=== PATIENT | female | born 1965 ===

== ENCOUNTER 2021-10-12 08:12 | Outpatient (CLI) | payer OTHER ==
[~2021-10-12 08:12] MED LIST: NORTUSS-EX LIQ118 ML PO; ZITHROMAX TRI-500 MG PO
== END 2021-10-12 08:18 | disposition home or self-care (01) ==
LOC: SONOGRAMA 08:12
PROVIDERS: ATTEND Pathology Anatomic Pathology & Clinical Pathology
DX: E04.2 Nontoxic multinodular goiter (principal)

== ENCOUNTER 2022-01-21 07:29 | Outpatient (CLI) | payer OTHER | END 2022-01-21 07:32 | disposition home or self-care (01) | LOC: SONOGRAMA 07:29 | PROVIDERS: ATTEND Pathology Anatomic Pathology & Clinical Pathology | DX: E04.2 Nontoxic multinodular goiter (principal) ==

== ENCOUNTER 2022-03-04 10:45 | Inpatient (IN) | payer OTHER ==
[~2022-03-04] VITALS: Ht 162.6 cm; Wt 76.2 kg
[2022-03-04] MEDS ORDERED: ENALAPRIL MALEA10 MG PO (11:32)
[2022-03-04] MEDS ORDERED: SINGULAIR10 MG PO (11:32)
[2022-03-04] MEDS ORDERED: ATORVASTATIN CA10 MG PO (11:32)
[2022-03-04] MEDS ORDERED: ZYRTEC10 M3 PO (11:33)
[2022-03-15] MEDS ORDERED: PERCOCET 5-3251 EACH PO (07:28)
[2022-03-15] MEDS ORDERED: COLACE100 MG PO (07:28)
[2022-03-15] MEDS ORDERED: MEDROLPACK PO (07:28)
== END 2022-03-16 12:30 | disposition home or self-care (01) | DRG 473 ==
LOC: SURG 03-08 10:45 → O/R 03-15 04:30 → SURG 03-15 07:00
PROVIDERS: ADMIT Orthopaedic Surgery Orthopaedic Surgery of the Spine; ATTEND Orthopaedic Surgery Orthopaedic Surgery of the Spine
PROC: 0RT30ZZ Resection of Cervical Vertebral Disc, Open Approach (ICD-10-PCS; 2022-03-15)
PROC: 0PH304Z Insertion of Internal Fixation Device into Cervical Vertebra, Open Approach (ICD-10-PCS; 2022-03-15)
PROC: 07DS3ZZ Extraction of Vertebral Bone Marrow, Percutaneous Approach (ICD-10-PCS; 2022-03-15)
PROC: 4A12X4Z Monitoring of Cardiac Electrical Activity, External Approach (ICD-10-PCS; 2022-03-15)
PROC: 0RG20A0 Fusion of 2 or more Cervical Vertebral Joints with Interbody Fusion Device, Anterior Approach, Anterior Column, Open Approach (ICD-10-PCS; principal; 2022-03-15 07:00)
DX: M50.021 Cervical disc disorder at C4-C5 level with myelopathy (principal); M48.02 Spinal stenosis, cervical region; I10 Essential (primary) hypertension; Z20.822 Contact with and (suspected) exposure to COVID-19

== ENCOUNTER 2022-12-10 08:30 | Outpatient (CLI) | payer OTHER ==
[~2022-12-10 08:30] MED LIST changes: +ATORVASTATIN CA10 MG PO; +COLACE100 MG PO; +ENALAPRIL MALEA10 MG PO; +MEDROLPACK PO; +PERCOCET 5-3251 EACH PO; +SINGULAIR10 MG PO; +ZYRTEC10 M3 PO
== END 2022-12-10 08:40 | disposition home or self-care (01) ==
LOC: RX STUDY 08:30
PROVIDERS: ATTEND Internal Medicine
DX: R13.10 Dysphagia, unspecified (principal)